=== PATIENT | male | born 1950 | race Native Hawaiian/Other Pacific Islander ===

== ENCOUNTER 2016-09-21 20:06 | Inpatient (IN) | payer OTHER ==
[2016-09-21 21:58] LABS: Basophils % (Auto) 0.8 % (0.0-1.8); Eosinophils % (Auto) 3.3 % (0.0-4.3); Hematocrit 27.2 % (35.5-45.6); Mean Corpuscular HGB Conc 33 % (32-34); Mean Corpuscular Hemoglobin 30 pg (28-32); Mean Corpuscular Volume 89 fl (84-94); Platelet Count 217 K/mm3 (140-440); Red Blood Count 3.05 M/mm3 (3.65-5.03); Red Cell Distribution Width 17.3 % (13.2-15.2)
[2016-09-21] MEDS ORDERED: LASIX IV ONE (22:10)
--- NOTE | 2016-09-21 22:15 | Emergency Department Report ---
HPI - General Chief Complaint: Dyspnea/Respdistress Time Seen by Provider: 09/21/16 21:59 - HPI HPI: Room 5 The patient is a 66-year-old male presenting with a chief complaint of shortness of breath. Family states the patient has forgotten to take his Lasix for the past 2 days (patient has a history of CHF). Yesterday the patient noticed swelling in his right lower extremity (left lower extremity was amputated 1.5 months ago) in addition to swelling in his hands and abdomen area patient began complaining of shortness of breath. Patient missed a cough but is nonproductive. Patient denies history of fever or chest pain. Patient denies sick contacts Location: Lungs, extremities Duration: 2 days Quality: Shortness of breath Severity: Moderate Modifying factors: Unknown Context: [see above] Mode of transportation: [not driving] ED Past Medical Hx - Past Medical History Previous Medical History?: Yes Hx Hypertension: Yes Hx Congestive Heart Failure: Yes Hx Diabetes: Yes Hx Renal Disease: Yes - Surgical History Past Surgical History?: Yes Additional Surgical History: BKA left leg - Family History Family history: no significant - Social History Smoking Status: Never Smoker Substance Use Type: None - Medications Home Medications: Home Medications Medication Instructions Recorded Confirmed Last Taken Type Insulin NPH/Regular [NovoLIN 70/30] 20 unit SUB-Q BIDDIAB #30 units 08/14/1612/03 1 Day Ago Rx 20 Furosemide [Lasix TAB] 40 mg PO BID #60 tablet 08/23/16 09/21/16 1 Day Ago Rx 40 Metoprolol [Lopressor TAB] 12.5 mg PO BID #60 tablet 08/23/16 09/21/16 1 Day Ago Rx 25 ED Review of Systems ROS: Stated complaint: KRUNAL Other details as noted in HPI Comment: All other systems reviewed and negative Constitutional: denies: chills, fever Eyes: denies: eye pain, eye discharge, vision change ENT: denies: ear pain, throat pain Respiratory: cough, shortness of breath Cardiovascular: denies: chest pain, palpitations Endocrine: no symptoms reported Gastrointestinal: denies: abdominal pain, nausea, diarrhea Genitourinary: denies: urgency, dysuria Musculoskeletal: denies: back pain, joint swelling, arthralgia Skin: other (edema). denies: rash, lesions Neurological: denies: headache, weakness, paresthesias Psychiatric: denies: anxiety, depression Hematological/Lymphatic: denies: easy bleeding, easy bruising Physical Exam - Physical Exam Vital Signs: Vital Signs 09/21/16 21:49 Temperature 98.0 F Pulse Rate 120 H Respiratory 20 Rate Blood Pressure 188/113 Blood Pressure 188/113 [Left] O2 Sat by Pulse 95 Oximetry Physical Exam: GENERAL: The patient is well-developed well-nourished male lying on stretcher appearing to be in mild distress. [] HEENT: Normocephalic. Atraumatic. Extraocular motions are intact. Patient has moist mucous membranes. NECK: Supple. Trachea midline CHEST/LUNGS: Crackles at bilateral bases HEART/CARDIOVASCULAR: Regular. There is tachycardia. There is no gallop rub or murmur. ABDOMEN: Abdomen is soft. There is abdominal wall edema SKIN: There is 2+ right lotion any pitting edema. There is pitting edema to the presacral region and abdomen NEURO: The patient is awake, alert, and oriented. The patient is cooperative. The patient has normal speech MUSCULOSKELETAL: Left BKA. There is no evidence of acute injury. ED Course Vital Signs 09/21/16 21:49 Temperature 98.0 F Pulse Rate 120 H Respiratory 20 Rate Blood Pressure 188/113 Blood Pressure 188/113 [Left] O2 Sat by Pulse 95 Oximetry ED Medical Decision Making - Lab Data Result diagrams: 09/21/16 21:46 09/21/16 21:46 Laboratory Tests 09/21/16 09/21/16 09/21/16 21:46 21:46 21:46 WBC 5.0 RBC 3.05 L Hgb 9.0 L Hct 27.2 L MCV 89 MCH 30 MCHC 33 RDW 17.3 H Plt Count 217 Lymph % (Auto) 23.9 [place] % (Auto) 7.7 H Eos % (Auto) 3.3 Baso % (Auto) 0.8 Lymph # 1.2 [place] # 0.4 Eos # 0.2 Baso # 0.0 Seg Neutrophils % 64.3 Seg Neutrophils # 3.2 Sodium 143 Potassium 4.5 Chloride 107.6 H Carbon Dioxide 20 L Anion Gap 20 BUN 39 H Creatinine 1.4 Estimated GFR 51 BUN/Creatinine Ratio 27.85 Glucose 92 Calcium 8.5 Total Creatine Kinase 101 CK-MB (CK-2) 4.6 H CK-MB (CK-2) Rel Index 4.5 H Troponin T 0.015 NT-Pro-B Natriuret Pep 9804 H - EKG Data -: EKG Interpreted by Me EKG shows normal: sinus rhythm Rate: tachycardia (103 bpm) - EKG Data When compared to previous EKG there are: no significant change Interpretation: unchanged when compared t (08/18/2016) - Radiology Data Radiology results: image reviewed (chest x-ray) interpreted by me: Chest x-ray-CHF with bilateral pleural effusions - Differential Diagnosis CHF exacerbation, pneumonia, ACS Critical care attestation.: If time is entered above; I have spent that time in minutes in the direct care of this critically ill patient, excluding procedure time. ED Disposition Clinical Impression: CHF exacerbation, Short of breath on exertion, Leg edema, right, Pulmonary edema Disposition: OP ADMITTED IP TO THIS HOSP Is pt being admited?: Yes Does the pt Need Aspirin: Yes Condition: Serious Instructions: Pulmonary Edema (ED) Referrals: PRIMARY CARE, [Primary Care Provider] - 3-5 Days Time of Disposition: 23:03 (hospitalist paged)
[2016-09-21 22:19] LABS: BUN/Creatinine Ratio 27.85; Calcium 8.5 mg/dL (8.4-10.2); Chloride 107.6 mmol/L (98-107); Potassium 4.5 mmol/L (3.6-5.0)
[2016-09-21 22:21] LABS: Creatine Kinase MB 4.6 ng/mL (0.0-4.0)
[2016-09-21] MEDS ORDERED: ASPIRIN PO ONE (22:34)
--- NOTE | 2016-09-21 23:24 | History and Physical Report ---
History of Present Illness Chief complaint: Shortness of breath History of present illness: 66 YO Male with HTN, CHF(Systolic Failure), DM, CKD, Medication noncompliance presents to ED for evaluation. Pt states that he has beex experiencing difficulty berathing for the past week, with worsening symptoms over the past 2 days. Pt acknowledges orthopnea, PND, diet and medication noncompliance, as wel as nonproductive cough. Pt states the he has forgotten to take his Lasix for the past several days. Patient denies history of fever, chills, chest pain, palpitations, NVD, recent ill contacts. Patient denies sick contacts. Past History Past Medical History: diabetes, heart failure, hypertension, renal failure Past Surgical History: Other (L BKA) Social history: single, lives with family. denies: alcohol abuse, prescription drug abuse Family history: diabetes, hypertension Medications and Allergies Allergies Allergy/AdvReac Type Severity Reaction Status Date / Time No Known Allergies Allergy Verified 08/03/16 02:09 Home Medications Medication Instructions Recorded Confirmed Last Taken Type Insulin NPH/Regular [NovoLIN 70/30] 20 unit SUB-Q BIDDIAB #30 units 08/14/1612/03 1 Day Ago Rx 20 Furosemide [Lasix TAB] 40 mg PO BID #60 tablet 08/23/16 09/21/16 1 Day Ago Rx 40 Metoprolol [Lopressor TAB] 12.5 mg PO BID #60 tablet 08/23/16 09/21/16 1 Day Ago Rx 25 Review of Systems All systems: negative Cardiovascular: orthopnea, paroxysmal nocturnal dyspnea Respiratory: shortness of breath, dyspnea on exertion Exam - Constitutional Vitals: Temp Pulse Resp BP Pulse Ox 98.0 F 114 H 32 H 166/96 99 09/21/16 21:49 09/21/16 22:12 09/21/16 22:12 09/21/16 22:12 09/21/16 22:12 Results - Labs CBC & Chem 7: 09/21/16 21:46 09/21/16 21:46 Labs: Abnormal lab results 09/21/16 09/21/16 09/21/16 Range/Units 21:46 21:46 21:46 RBC 3.05 L (3.65-5.03) M/mm3 Hgb 9.0 L (11.8-15.2) gm/dl Hct 27.2 L (35.5-45.6) % RDW 17.3 H (13.2-15.2) % [place] % (Auto) 7.7 H (0.0-7.3) % Chloride 107.6 H (98-107) mmol/L Carbon Dioxide 20 L (22-30) mmol/L BUN 39 H (9-20) mg/dL CK-MB (CK-2) 4.6 H (0.0-4.0) ng/mL CK-MB (CK-2) Rel Index 4.5 H (0-4) NT-Pro-B Natriuret Pep 9804 H (0-900) pg/mL Assessment and Plan - Patient Problems (1) CHF exacerbation Current Visit: Yes Status: Acute Plan to address problem: Diuresis, fluid restriction, monitor uop q shift, resume home medication, (2) Acute hypoxemic respiratory failure Current Visit: No Status: Acute Plan to address problem: supplemental oxygen, nebs, supportive care, NIPPV as clinically indicated, (3) Malignant hypertension Current Visit: Yes Status: Acute Plan to address problem: monitor bp q shift, resume home medication, hydralazine prn (4) Diabetes Current Visit: No Status: Acute Plan to address problem: ADA diet, insulin, accu check (5) DVT prophylaxis Current Visit: No Status: Acute
[2016-09-21] MEDS ORDERED: DUONEB 0.5 MG-3 MG/3 ML SOLN IH PRN (23:27)
--- NOTE | 2016-09-21 23:28 | Admit Criteria Form ---
Admission Criteria Documentation: HEART FAILURE: COMMON COMPLICATIONS Clinical Indications for Inpatient Care (Place 'X' for any and all applicable criteria): Ongoing inpatient care may be indicated for heart failure with ANY ONE of the following (1)(2)(3)(4)(5): [ ]I. Ongoing need for care for primary condition requiring frequent therapy adjustments because of changes in cardiac function (eg, drug dosage changes for drugs that are renally metabolized) [ ]II. New-onset heart failure [ ]III. Heart failure with decreased urine output not responsive to attempts to optimize volume status [ ]IV. Acute cardiac ischemia causing or associated with failure [X ]V. Complications of heart failure, including ANY ONE of the following: [ ]a) Pericardial effusion [ ]b) Symptomatic pleural effusion [ ]c) O2 saturation <90% or PO2 < 60 mm Hg (8.0 kPa) on room air or require baseline supplemental O2 [ ]d) Tachypnea [ X]e) Dyspnea [ ]f) Syncope [ ]g) Change in mental status [ ]h) Acute renal insufficiency that is severe (reduction of more than 50% in estimated glomerular filtration rate from baseline) or progressive reduction of more than 25% in estimated glomerular filtration rate from baseline, with creatinine continuing to rise) [ ]i) Hemodynamic instability [ ]j) Anasarca [ ]k) Clinically significant metabolic abnormalities due to heart failure (eg, new-onset metabolic acidosis) Extended stay beyond goal length of stay for primary condition may be needed until ALL of the following are present(1)(3): [ ]a) Stable and effective diuretic regimen established (or patient on stable dialysis regimen if in chronic renal failure) [ ]b) Breathing comfortably at rest [ ]c) Saturation of arterial oxygen greater than 90% or at acceptable baseline [ ]d) Pulmonary edema absent or improved [ ]e) Hemodynamic stability [ ]f) Volume status acceptable on oral medication [ ]g) Peripheral or sacral edema absent or improved [ ]h) Renal function stable and manageable at a lower level of care [ ]i) Complications (eg, pleural effusion) resolved or manageable at a lower level of care [ ]j) Patient or caregiver has received written discharge instructions or educational material addressing activity level, diet, discharge medications, follow-up appointment, weight monitoring, and what to do if symptoms worsen The original [facility] content created by [employer] has been revised. The portions of the content which have been revised are identified through the use of italic text or in bold, and [facility] has neither reviewed nor approved the modified material.All other unmodified content is copyright [facility]. Please see references footnoted in the original [facility] edition 2016 Admission Criteria Met: Yes
[2016-09-22] MEDS ORDERED: PROVENTIL IH PRN (00:05)
[2016-09-22] MEDS: LASIX IV SCH ×2 (06:06→18:56)
[2016-09-22] MEDS: LOPRESSOR PO SCH ×3 (08:30→21:02)
--- NOTE | 2016-09-22 09:13 | XRay Report ---
Portable chest: Bilateral perihilar infiltrates are noted with bibasilar areas of focal consolidation and/or pleural effusions. The heart is difficult to assess but may be slightly enlarged. There is poor expiratory effort. Comparison to prior study August 19 demonstrates a change in the distribution of pulmonary infiltrates predominantly from the upper to the lower lobes on the current study. Impression: Changing pattern of nonspecific pulmonary infiltrates and effusions.
[2016-09-22] MEDS ORDERED: PNEUMOVAX 23 IM ONE (12:00)
[2016-09-22] MEDS ORDERED: FLUARIX QUAD 2016-2017(36 MOS+) IM ONE (12:00)
--- NOTE | 2016-09-22 12:00 | Progress Note ---
Assessment and Plan Assessment and plan: Acute on chronic systolic CHF. Started on Lasix 40 mg iv bid, Beta blockers Diabetes mellitus type 2. Fingerstick glucose qachs Hypertension. Continue Lopressor bid DVT prophylaxis with Heparin Full code status. History Interval history: shortness of breath, no chest pain Hospitalist Physical - Physical exam Narrative exam: Gen: Not in acute distress HEENT: Normocephalic, atraumatic Neck:supple, no lymphadenopathy Lungs: Bilateral crackles, no wheezes Heart:S1 and S2 reg, no murmurs, rubs or gallop Abd: soft, NT, non-distended, normal BS Ext:no edema, no clubbing or cyanosis Neuro:Awake,alert,oriented x 3, no focal neuro signs - Constitutional Vitals: Temp Pulse Resp BP Pulse Ox 98.5 F 80 18 127/78 100 09/22/16 11:00 09/22/16 11:00 09/22/16 11:00 09/22/16 11:00 09/22/16 11:00 Results - Labs CBC & Chem 7: 09/21/16 21:46 09/22/16 16:54 Labs: Laboratory Last Values WBC 5.0 K/mm3 (4.5-11.0) 09/21/16 21:46 RBC 3.05 M/mm3 (3.65-5.03) L 09/21/16 21:46 Hgb 9.0 gm/dl (11.8-15.2) L 09/21/16 21:46 Hct 27.2 % (35.5-45.6) L 09/21/16 21:46 MCV 89 fl (84-94) 09/21/16 21:46 MCH 30 pg (28-32) 09/21/16 21:46 MCHC 33 % (32-34) 09/21/16 21:46 RDW 17.3 % (13.2-15.2) H 09/21/16 21:46 Plt Count 217 K/mm3 (140-440) 09/21/16 21:46 Lymph % (Auto) 23.9 % (13.4-35.0) 09/21/16 21:46 [place] % (Auto) 7.7 % (0.0-7.3) H 09/21/16 21:46 Eos % (Auto) 3.3 % (0.0-4.3) 09/21/16 21:46 Baso % (Auto) 0.8 % (0.0-1.8) 09/21/16 21:46 Lymph # 1.2 K/mm3 (1.2-5.4) 09/21/16 21:46 [place] # 0.4 K/mm3 (0.0-0.8) 09/21/16 21:46 Eos # 0.2 K/mm3 (0.0-0.4) 09/21/16 21:46 Baso # 0.0 K/mm3 (0.0-0.1) 09/21/16 21:46 Seg Neutrophils % 64.3 % (40.0-70.0) 09/21/16 21:46 Seg Neutrophils # 3.2 K/mm3 (1.8-7.7) 09/21/16 21:46 Sodium 143 mmol/L (137-145) 09/21/16 21:46 Potassium 4.5 mmol/L (3.6-5.0) 09/21/16 21:46 Chloride 107.6 mmol/L (98-107) H 09/21/16 21:46 Carbon Dioxide 20 mmol/L (22-30) L 09/21/16 21:46 Anion Gap 20 mmol/L 09/21/16 21:46 BUN 39 mg/dL (9-20) H 09/21/16 21:46 Creatinine 1.4 mg/dL (0.8-1.5) 09/21/16 21:46 Estimated GFR 51 ml/min 09/21/16 21:46 BUN/Creatinine Ratio 27.85 % 09/21/16 21:46 Glucose 92 mg/dL (75-100) 09/21/16 21:46 Calcium 8.5 mg/dL (8.4-10.2) 09/21/16 21:46 Total Creatine Kinase 101 units/L (55-170) 09/21/16 21:46 CK-MB (CK-2) 4.6 ng/mL (0.0-4.0) H 09/21/16 21:46 CK-MB (CK-2) Rel Index 4.5 (0-4) H 09/21/16 21:46 Troponin T 0.015 ng/mL (0.00-0.029) 09/21/16 21:46 NT-Pro-B Natriuret Pep 9804 pg/mL (0-900) H 09/21/16 21:46
[2016-09-22 18:00] LABS: BUN/Creatinine Ratio 27.85; Calcium 8.2 mg/dL (8.4-10.2); Chloride 105.5 mmol/L (98-107); Potassium 4.7 mmol/L (3.6-5.0)
[2016-09-22] MEDS ORDERED: D50W (25GM) IV PRN (22:22)
[2016-09-23] MEDS: LASIX IV SCH ×2 (06:24→18:53)
[2016-09-23] MEDS: HEPARIN SUB-Q SCH ×3 (06:24→21:31)
[2016-09-23] MEDS: LOPRESSOR PO SCH ×2 (10:14→21:32)
--- NOTE | 2016-09-23 11:38 | Consultation ---
History of Present Illness Consult date: 09/23/16 Consult reason: shortness of breath History of present illness: Patient is a 66-year-old man with multiple medical problems. He is status post left below knee amputation, has chronic anemia, chronic kidney disease and a history of heart failure with preserved ejection fraction. Recent admission, an echocardiogram showed left ventricular ejection fraction 45-50%, with no severe valvular lesions. He is a poor historian and unable to articulate details of any prior cardiac ischemic workup. He presents to the hospital at this time with shortness of breath, reported some swelling in his hands and his intact right leg. There was no chest pain. There was no palpitations or syncope. Chest x-ray was reviewed by me, shows a dense right lower lobe consultation, small to moderate sized lateral pleural effusions, and only very mild interstitial edema. Labs on presentation include a persistent anemia with a hematocrit of 27. The white count was normal at 5. The creatinine on this presentation was improved at 1.4. On the previous admission last month, creatinine was as high as 4.8. ECG was mild sinus tachycardia with nonspecific ST and T changes. ECG was essentially otherwise normal. Past History Past Medical History: diabetes, heart failure, hypertension, renal failure Past Surgical History: Other (L BKA) Social history: single, lives with family. denies: alcohol abuse, prescription drug abuse Family history: diabetes, hypertension Medications and Allergies Allergies Allergy/AdvReac Type Severity Reaction Status Date / Time No Known Allergies Allergy Verified 08/03/16 02:09 Home Medications Medication Instructions Recorded Confirmed Last Taken Type Insulin NPH/Regular [NovoLIN 70/30] 20 unit SUB-Q BIDDIAB #30 units 08/14/1612/03 1 Day Ago Rx 20 Furosemide [Lasix TAB] 40 mg PO BID #60 tablet 08/23/16 09/21/16 1 Day Ago Rx 40 Metoprolol [Lopressor TAB] 12.5 mg PO BID #60 tablet 08/23/16 09/21/16 1 Day Ago Rx 25 Active Meds: Active Medications Acetaminophen (Tylenol) 650 mg PO Q4H PRN PRN Reason: Pain MILD(1-3)/Fever >100.5/BEARD Albuterol (Proventil) 2.5 mg IH Q6HRT PRN PRN Reason: Shortness Of Breath Dextrose (D50w (25gm)) 25 gm IV PRN PRN PRN Reason: Hypoglycemia Furosemide (Lasix) 40 mg IV BID@0600,1800 [facility] Last Admin: 09/23/16 06:24 Dose: 40 mg Heparin Sodium (Porcine) (Heparin) 5,000 unit SUB-Q Q8HR [facility] Last Admin: 09/23/16 06:24 Dose: 5,000 unit Insulin Human Isoph/Insulin Regular (Novolin 70/30) 20 unit SUB-Q BIDDIAB [facility] Last Admin: 09/22/16 18:56 Dose: 20 unit Metoprolol Tartrate (Lopressor) 12.5 mg PO BID [facility] Last Admin: 09/23/16 10:14 Dose: 12.5 mg Review of Systems Cardiovascular: edema, shortness of breath, no chest pain, no orthopnea, no palpitations, no rapid/irregular heart beat, no syncope, no lightheadedness Physical Examination Vital Signs Temp Pulse Resp BP Pulse Ox 98.0 F 120 H 20 188/113 95 09/21/16 21:49 09/21/16 21:49 09/21/16 21:49 09/21/16 21:49 09/21/16 21:49 General appearance: no acute distress HEENT: Positive: PERRL Neck: Positive: neck supple Cardiac: Positive: Reg Rate and Rhythm Lungs: Positive: Decreased Breath Sounds Neuro: Positive: Grossly Intact Abdomen: Positive: Soft Male genitourinary: Positive: deferred Skin: Positive: Clear Extremities: Present: +1 Edema Results 09/21/16 21:46 09/22/16 16:54 Comprehensive Metabolic Panel 09/22/16 Range/Units 16:54 Sodium 141 (137-145) mmol/L Potassium 4.7 (3.6-5.0) mmol/L Chloride 105.5 (98-107) mmol/L Carbon Dioxide 21 L (22-30) mmol/L BUN 39 H (9-20) mg/dL Creatinine 1.4 (0.8-1.5) mg/dL Glucose 72 L (75-100) mg/dL Calcium 8.2 L (8.4-10.2) mg/dL EKG interpretations - Telemetry EKG Rhythm: Sinus Tachycardia Assessment and Plan - Patient Problems (1) Heart failure with preserved ejection fraction Current Visit: Yes Status: Acute Plan to address problem: We'll continue medical therapy for fluid overload, ultimately, either predischarge or outpatient, a Persantine thallium stress test for ischemia assessment will be indicated. (2) Pleural effusion Current Visit: Yes Status: Acute Plan to address problem: Recommend pulmonary evaluation of the bilateral pleural effusion and right lower lobe consolidation.
--- NOTE | 2016-09-23 18:47 | Progress Note ---
Assessment and Plan Assessment and plan: Acute on chronic systolic CHF. EF 45-50% on Echo done on 08/17/16. Started on Lasix 40 mg iv bid, Lopressor. Still has shortness of breath. Cardiology following. CXR shows pulmonary edema. Diabetes mellitus type 2. Fingerstick glucose qachs Hypertension. Continue Lopressor bid DVT prophylaxis with Heparin Full code status. History Interval history: still has shortness of breath, no chest pain, no fever Hospitalist Physical - Physical exam Narrative exam: Gen: Not in acute distress HEENT: Normocephalic, atraumatic Neck:supple, no lymphadenopathy Lungs: Bilateral crackles, no wheezes Heart:S1 and S2 reg, no murmurs, rubs or gallop Abd: soft, NT, non-distended, normal BS Ext:no edema, no clubbing or cyanosis Neuro:Awake,alert,oriented x 3, no focal neuro signs - Constitutional Vitals: Temp Pulse Resp BP Pulse Ox 98.6 F 84 18 147/82 92 09/23/16 17:18 09/23/16 18:04 09/23/16 17:18 09/23/16 17:18 09/23/16 17:18 Results - Labs CBC & Chem 7: 09/21/16 21:46 09/22/16 16:54 Labs: Laboratory Last Values WBC 5.0 K/mm3 (4.5-11.0) 09/21/16 21:46 RBC 3.05 M/mm3 (3.65-5.03) L 09/21/16 21:46 Hgb 9.0 gm/dl (11.8-15.2) L 09/21/16 21:46 Hct 27.2 % (35.5-45.6) L 09/21/16 21:46 MCV 89 fl (84-94) 09/21/16 21:46 MCH 30 pg (28-32) 09/21/16 21:46 MCHC 33 % (32-34) 09/21/16 21:46 RDW 17.3 % (13.2-15.2) H 09/21/16 21:46 Plt Count 217 K/mm3 (140-440) 09/21/16 21:46 Lymph % (Auto) 23.9 % (13.4-35.0) 09/21/16 21:46 [place] % (Auto) 7.7 % (0.0-7.3) H 09/21/16 21:46 Eos % (Auto) 3.3 % (0.0-4.3) 09/21/16 21:46 Baso % (Auto) 0.8 % (0.0-1.8) 09/21/16 21:46 Lymph # 1.2 K/mm3 (1.2-5.4) 09/21/16 21:46 [place] # 0.4 K/mm3 (0.0-0.8) 09/21/16 21:46 Eos # 0.2 K/mm3 (0.0-0.4) 09/21/16 21:46 Baso # 0.0 K/mm3 (0.0-0.1) 09/21/16 21:46 Seg Neutrophils % 64.3 % (40.0-70.0) 09/21/16 21:46 Seg Neutrophils # 3.2 K/mm3 (1.8-7.7) 09/21/16 21:46 Sodium 141 mmol/L (137-145) 09/22/16 16:54 Potassium 4.7 mmol/L (3.6-5.0) 09/22/16 16:54 Chloride 105.5 mmol/L (98-107) 09/22/16 16:54 Carbon Dioxide 21 mmol/L (22-30) L 09/22/16 16:54 Anion Gap 19 mmol/L 09/22/16 16:54 BUN 39 mg/dL (9-20) H 09/22/16 16:54 Creatinine 1.4 mg/dL (0.8-1.5) 09/22/16 16:54 Estimated GFR 51 ml/min 09/22/16 16:54 BUN/Creatinine Ratio 27.85 % 09/22/16 16:54 Glucose 72 mg/dL (75-100) L 09/22/16 16:54 POC Glucose 221 (70-105) H 09/23/16 15:54 Calcium 8.2 mg/dL (8.4-10.2) L 09/22/16 16:54 Total Creatine Kinase 101 units/L (55-170) 09/21/16 21:46 CK-MB (CK-2) 4.6 ng/mL (0.0-4.0) H 09/21/16 21:46 CK-MB (CK-2) Rel Index 4.5 (0-4) H 09/21/16 21:46 Troponin T 0.029 ng/mL (0.00-0.029) 09/22/16 16:54 NT-Pro-B Natriuret Pep 9804 pg/mL (0-900) H 09/21/16 21:46
[2016-09-23] MEDS: TYLENOL PO PRN (21:33)
[2016-09-24] MEDS: HEPARIN SUB-Q SCH ×3 (06:02→21:29)
[2016-09-24] MEDS: LASIX IV SCH ×2 (06:02→17:17)
--- NOTE | 2016-09-24 08:58 | XRay Report ---
CHEST 2 VIEWS: INDICATION: CHF. COMPARISON: 09/21/2016 FINDINGS: Frontal and lateral chest radiographs again demonstrate limited inspiration with exaggerated cardiomediastinal silhouette and increased pulmonary infiltrates/congestive densities, including bibasilar opacities/effusions, obscuring the hemidiaphragms. Mild fluid or thickening along the right minor fissure as well. Slight aortic knob calcifications. Stable demineralized bones. CONCLUSION: CHF again noted, as described. Thank you for the opportunity to participate in this patient's care.
[2016-09-24] MEDS: LOPRESSOR PO SCH ×2 (09:39→21:26)
--- NOTE | 2016-09-24 10:59 | Progress Note ---
Assessment and Plan Acute on chronic diastolic heart failure LVEF 45-50% Patient is warm and wet on exam with evidence of bilateral rales Systemic Hypertension Type II DM s/p left leg amputation Anemia Chronic kidney disease (creatinine 1.4 this admission) Non-compliance Recommendations: Encourage compliance with meds and fluid restriction (patient is non-compliant with meds and misses his outpatient appt on a routine basis) Continue IV lasix therapy Subjective Date of service: 09/24/16 Principal diagnosis: CHF Interval history: Patient is lying in bed, no distress Objective Vital Signs Temp Pulse Pulse Pulse Resp BP BP 09/24/16 10:51 89 09/24/16 09:02 09/24/16 08:00 98 F 90 20 141/76 09/24/16 05:49 98.6 F 83 20 126/75 09/24/16 02:00 103 H 09/24/16 00:28 98.3 F 96 H 20 130/70 09/23/16 21:33 20 09/23/16 21:32 103 H 159/73 09/23/16 20:53 09/23/16 19:46 98.4 F 103 H 20 151/79 09/23/16 18:04 84 09/23/16 17:18 98.6 F 93 H 18 147/82 09/23/16 13:25 97.6 F 83 18 149/84 Pulse Ox 09/24/16 10:51 09/24/16 09:02 95 09/24/16 08:00 100 09/24/16 05:49 100 09/24/16 02:00 09/24/16 00:28 97 09/23/16 21:33 09/23/16 21:32 09/23/16 20:53 96 09/23/16 19:46 99 09/23/16 18:04 09/23/16 17:18 92 09/23/16 13:25 98 - Physical Examination HEENT: Positive: PERRL Neck: Positive: neck supple Cardiac: Positive: Reg Rate and Rhythm Lungs: Positive: Rales Neuro: Positive: Grossly Intact Abdomen: Positive: Soft Skin: Positive: Clear Extremities: Present: +1 Edema
--- NOTE | 2016-09-24 12:12 | Consultation ---
History of Present Illness Consult date: 09/24/16 Requesting physician: MANUEL ESQUEDA Reason for consult: pleural effusion (Shortness of Breath), other History of present illness: PULMONARY/CCM CONSULT NOTE (Full dictation # [id number]) Please see dictated notes for full details Past History Past Medical History: diabetes, heart failure, hypertension, renal failure Past Surgical History: Other (L BKA) Social history: single, lives with family. denies: alcohol abuse, prescription drug abuse Family history: diabetes, hypertension Medications and Allergies Allergies Allergy/AdvReac Type Severity Reaction Status Date / Time No Known Allergies Allergy Verified 08/03/16 02:09 Home Medications Medication Instructions Recorded Confirmed Last Taken Type Insulin NPH/Regular [NovoLIN 70/30] 20 unit SUB-Q BIDDIAB #30 units 08/14/1612/03 1 Day Ago Rx 20 Furosemide [Lasix TAB] 40 mg PO BID #60 tablet 08/23/16 09/21/16 1 Day Ago Rx 40 Metoprolol [Lopressor TAB] 12.5 mg PO BID #60 tablet 08/23/16 09/21/16 1 Day Ago Rx 25 Active Meds: Active Medications Acetaminophen (Tylenol) 650 mg PO Q4H PRN PRN Reason: Pain MILD(1-3)/Fever >100.5/BEARD Last Admin: 09/23/16 21:33 Dose: 650 mg Albuterol (Proventil) 2.5 mg IH Q6HRT PRN PRN Reason: Shortness Of Breath Dextrose (D50w (25gm)) 25 gm IV PRN PRN PRN Reason: Hypoglycemia Furosemide (Lasix) 40 mg IV BID@0600,1800 [facility] Last Admin: 09/24/16 06:02 Dose: 40 mg Heparin Sodium (Porcine) (Heparin) 5,000 unit SUB-Q Q8HR [facility] Last Admin: 09/24/16 06:02 Dose: 5,000 unit Insulin Human Isoph/Insulin Regular (Novolin 70/30) 20 unit SUB-Q BIDDIAB [facility] Last Admin: 09/24/16 09:40 Dose: 20 unit Metoprolol Tartrate (Lopressor) 12.5 mg PO BID [facility] Last Admin: 09/24/16 09:39 Dose: 12.5 mg Physical Examination Vital signs: Vital Signs Temp Pulse Resp BP Pulse Ox 98.0 F 120 H 20 188/113 95 09/21/16 21:49 09/21/16 21:49 09/21/16 21:49 09/21/16 21:49 09/21/16 21:49 Results - Laboratory Findings CBC and BMP: 09/21/16 21:46 09/22/16 16:54 Abnormal lab findings: Abnormal Labs 09/22/16 09/22/16 09/23/16 16:54 22:17 07:36 Carbon Dioxide 21 L BUN 39 H Glucose 72 L POC Glucose 60 L 61 L Calcium 8.2 L 09/23/16 09/23/16 09/23/16 13:16 15:54 21:33 Carbon Dioxide BUN Glucose POC Glucose 154 H 221 H 244 H Calcium 09/24/16 07:54 Carbon Dioxide BUN Glucose POC Glucose 187 H Calcium
--- NOTE | 2016-09-24 14:44 | Progress Note ---
Assessment and Plan Assessment and plan: Acute on chronic systolic CHF. EF 45-50% on Echo done on 08/17/16. Continue Lasix 40 mg iv bid, Lopressor. Less shortness of breath. Cardiology following. CXR shows pulmonary edema. Diabetes mellitus type 2. Fingerstick glucose qachs Hypertension. Continue Lopressor bid DVT prophylaxis with Heparin Full code status. History Interval history: Less has shortness of breath, no chest pain, no fever Hospitalist Physical - Physical exam Narrative exam: Gen: Not in acute distress HEENT: Normocephalic, atraumatic Neck:supple, no lymphadenopathy Lungs: Bilateral crackles, no wheezes Heart:S1 and S2 reg, no murmurs, rubs or gallop Abd: soft, NT, non-distended, normal BS Ext: bilateral lower ext edema, no clubbing or cyanosis Neuro:Awake,alert,oriented x 3, no focal neuro signs - Constitutional Vitals: Temp Pulse Resp BP Pulse Ox 97.6 F 96 H 20 128/72 96 09/24/16 12:00 09/24/16 12:00 09/24/16 12:00 09/24/16 12:00 09/24/16 12:00 General appearance: Present: no acute distress Results - Labs CBC & Chem 7: 09/21/16 21:46 09/22/16 16:54 Labs: Laboratory Last Values WBC 5.0 K/mm3 (4.5-11.0) 09/21/16 21:46 RBC 3.05 M/mm3 (3.65-5.03) L 09/21/16 21:46 Hgb 9.0 gm/dl (11.8-15.2) L 09/21/16 21:46 Hct 27.2 % (35.5-45.6) L 09/21/16 21:46 MCV 89 fl (84-94) 09/21/16 21:46 MCH 30 pg (28-32) 09/21/16 21:46 MCHC 33 % (32-34) 09/21/16 21:46 RDW 17.3 % (13.2-15.2) H 09/21/16 21:46 Plt Count 217 K/mm3 (140-440) 09/21/16 21:46 Lymph % (Auto) 23.9 % (13.4-35.0) 09/21/16 21:46 [place] % (Auto) 7.7 % (0.0-7.3) H 09/21/16 21:46 Eos % (Auto) 3.3 % (0.0-4.3) 09/21/16 21:46 Baso % (Auto) 0.8 % (0.0-1.8) 09/21/16 21:46 Lymph # 1.2 K/mm3 (1.2-5.4) 09/21/16 21:46 [place] # 0.4 K/mm3 (0.0-0.8) 09/21/16 21:46 Eos # 0.2 K/mm3 (0.0-0.4) 09/21/16 21:46 Baso # 0.0 K/mm3 (0.0-0.1) 09/21/16 21:46 Seg Neutrophils % 64.3 % (40.0-70.0) 09/21/16 21:46 Seg Neutrophils # 3.2 K/mm3 (1.8-7.7) 09/21/16 21:46 Sodium 141 mmol/L (137-145) 09/22/16 16:54 Potassium 4.7 mmol/L (3.6-5.0) 09/22/16 16:54 Chloride 105.5 mmol/L (98-107) 09/22/16 16:54 Carbon Dioxide 21 mmol/L (22-30) L 09/22/16 16:54 Anion Gap 19 mmol/L 09/22/16 16:54 BUN 39 mg/dL (9-20) H 09/22/16 16:54 Creatinine 1.4 mg/dL (0.8-1.5) 09/22/16 16:54 Estimated GFR 51 ml/min 09/22/16 16:54 BUN/Creatinine Ratio 27.85 % 09/22/16 16:54 Glucose 72 mg/dL (75-100) L 09/22/16 16:54 POC Glucose 99 (70-105) 09/24/16 12:03 Calcium 8.2 mg/dL (8.4-10.2) L 09/22/16 16:54 Total Creatine Kinase 101 units/L (55-170) 09/21/16 21:46 CK-MB (CK-2) 4.6 ng/mL (0.0-4.0) H 09/21/16 21:46 CK-MB (CK-2) Rel Index 4.5 (0-4) H 09/21/16 21:46 Troponin T 0.029 ng/mL (0.00-0.029) 09/22/16 16:54 NT-Pro-B Natriuret Pep 9804 pg/mL (0-900) H 09/21/16 21:46
[2016-09-24] MEDS: TYLENOL PO PRN (21:27)
--- NOTE | 2016-09-25 01:58 | Consultation ---
CONSULTING PHYSICIAN: Aram Moise MD REASON FOR CONSULTATION: Shortness of breath, pleural effusion. CHIEF COMPLAINT AND HISTORY OF PRESENT ILLNESS: The patient is a 66-year-old male with past medical history significant amongst other things for a diagnosis of congestive heart failure as well as chronic kidney disease, came into the Emergency Room, brought in by his family for shortness of breath. They report he had forgotten to take his Lasix for the preceding 2 days and became significantly short of breath. The day of presentation, he had noticed swelling in the right lower extremity and also abdominal swelling and increased abdominal girth. He had a cough that was productive of clear phlegm. Denied any chest pain, fevers, or chills. He was evaluated and found amongst other things to be volume overloaded and we were asked to assist with the management of reported pleural effusion. When I stopped by to see him, he was sitting up in the side of the bed, told me he was feeling better. Denied any nausea, vomiting, or overt aspiration prior to coming into the hospital. He denied any gross or streaky hemoptysis. He denied fevers or chills. Now with regards to the patient's tobacco use/abuse history, he denied any smoking history to me. That really is as much of the history of presentation as I have. PAST MEDICAL HISTORY: Again, significant for hypertension, congestive heart failure, diabetes, chronic kidney disease. 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 MEDICATIONS: He was on at the time I stopped by to see him, according to the medication administration record included the following: Tylenol 650 mg p.o. q. 4 hours p.r.n., albuterol 2.5 mg nebulized q. 6 hours p.r.n. shortness of breath, Lasix 40 mg IV b.i.d., heparin 5000 units subcutaneous q. 8 hours, 70/30 insulin 20 units subcutaneous b.i.d., and Lopressor 12.5 mg p.o. b.i.d. ALLERGIES: No known drug allergies. DIET: Well-built gentleman, acute weight loss or gain history is unknown. FAMILY AND SOCIAL HISTORY: Apparently, lives in the community with the family. Denies alcohol, tobacco, or illicit drug use or abuse. REVIEW OF SYSTEMS: No loss of consciousness. No new onset seizures. No new onset focal weakness. No gross hematochezia or melena. No gross hematuria. Denies dysuria. No hematemesis. No hemoptysis. No palpitations. Complete review of systems obtained. Pertinent positives and/or negatives as in body of history above, otherwise they are noncontributory. PHYSICAL EXAMINATION: VITAL SIGNS: At initial presentation in the Emergency Room revealed the vital signs shows that he was afebrile, temperature was 98.0, pulse was 120, respiratory rate 20, blood pressure 188/113, oxygen sats were 95%. Inspired oxygen concentration was not recorded. HEENT: Pupils are equal, round, about 3-4 mm, reactive to light. Extraocular muscle movements are intact. Oropharynx is a Mallampati #2 oropharynx, no significant posterior pharyngeal erythema. Grossly, no palpable lymph nodes in the supraclavicular or submandibular lymph node chains. LUNGS: Auscultation of both lung cazares significant for bibasilar inspiratory rales as well as diminished bibasilar air entry. No wheezing. HEART: Heart sounds 1 and 2 are heard. There were regular rate and rhythm at the time of my evaluation. ABDOMEN: Soft, bowel sounds are positive, did not appear tender. EXTREMITIES: With 2+ tight pitting edema of the right lower extremity and left below the knee amputation. NEUROLOGIC: The exam was grossly nonfocal. LABORATORY DATA: From my review are as follows: White cell count 5000 with a hemoglobin of 9.0, hematocrit of 27.2, and platelets of 217. Serum sodium 143, potassium 4.5, chloride 108, bicarbonate 20, BUN 39, creatinine 1.4, and glucose was 92. Liver function test not done. BNP elevated at 9804, and cardiac enzymes essentially unremarkable really. RADIOGRAPHIC STUDIES: Unfortunately, I am unable to pull up the images myself. The initial chest x-ray mentions poor expiratory effort, change in pattern of nonspecific pulmonary infiltrates and effusions. Repeat chest x-ray was done today and it says congestive heart failure again noted as described. Unfortunately, it did not mention if it is improving or about the same. ASSESSMENT AND PLAN: We have an elderly gentleman in with an acute CHF exacerbation and what appears to be chronic effusions and volume overload pattern. Respiratory ruiz, supplemental oxygen as necessary to keep sats greater than about 92-94% will be continued. By the time I saw him, he was on only about 1 liter nasal cannula. I do believe with diuresis, he will be free of the hypoxemia. I will try and pull up the films and if significant, thoracentesis will be done; however, just on the clinical exam, I do think we can treat this conservatively with the diuretics. Electrolytes should be followed and corrected as necessary. Aspiration precautions should be maintained. Medication compliance has been stressed. He will be placed on GI prophylaxis. He is on DVT prophylaxis. Flu and pneumonia vaccination will be per protocol. Thank you very much for the consult Dr. Moise. We will follow along. We will make further recommendations as picture progresses/becomes clearer. JOB# [id number] SAPNA/JACINTA
[2016-09-25] MEDS: LASIX IV SCH ×2 (05:43→17:43)
[2016-09-25] MEDS: HEPARIN SUB-Q SCH ×3 (05:43→21:45)
--- NOTE | 2016-09-25 09:29 | Progress Note ---
Assessment and Plan Acute on chronic diastolic heart failure - improved LVEF 45-50% Systemic Hypertension Type II DM s/p left leg amputation Anemia Chronic kidney disease (creatinine 1.4 this admission) Non-compliance Recommendations: Encourage compliance with meds and fluid restriction (patient is non-compliant with meds and misses his outpatient appt on a routine basis) Change IV lasix to po 40 mg po bid Add hydralazine for afterload reduction May go home cardiac ruiz (will sign off) Son given contact information to schedule appt in 1 week Subjective Date of service: 09/25/16 Principal diagnosis: CHF Interval history: Son is at the bedside, states that father is feeling much better and the swelling has significantly improved. Patient denies chest pain or shortness of breath. Objective Vital Signs Temp Pulse Pulse Resp BP BP Pulse Ox 09/25/16 06:19 98.6 F 92 H 22 156/90 99 09/25/16 00:29 98.7 F 78 20 129/73 100 09/24/16 21:27 22 09/24/16 21:26 89 132/78 09/24/16 20:44 98 09/24/16 20:41 98.4 F 89 20 132/78 99 09/24/16 18:18 89 09/24/16 16:00 97.7 F 95 H 20 135/82 97 09/24/16 12:00 97.6 F 96 H 20 128/72 96 09/24/16 11:23 14 09/24/16 10:51 89 - Physical Examination HEENT: Positive: PERRL Neck: Positive: neck supple Cardiac: Positive: Reg Rate and Rhythm Lungs: Positive: Normal Exam Neuro: Positive: Grossly Intact Abdomen: Positive: Soft Skin: Positive: Clear Extremities: Present: +1 Edema
[2016-09-25] MEDS: PEPCID PO SCH (10:45)
[2016-09-25] MEDS: APRESOLINE PO SCH ×3 (10:45→21:44)
[2016-09-25] MEDS: LOPRESSOR PO SCH ×2 (10:45→21:45)
--- NOTE | 2016-09-25 11:25 | Progress Note ---
Subjective Date of service: 09/25/16 Principal diagnosis: CHF Interval history: seen and examined at bedside; 24hour events reviewed; nursing and respiratory care staff consulted; no adverse overnight events reported to me; Objective Vital Signs - 12hr 09/25/16 09/25/16 09/25/16 00:29 06:19 09:37 Temperature 98.7 F 98.6 F 98.7 F Pulse Rate Pulse Rate [ 91 H Left] Pulse Rate [ 78 92 H Right Radial] Respiratory 20 22 18 Rate Blood Pressure Blood Pressure 129/73 156/90 143/87 [Right Radial Artery] O2 Sat by Pulse 100 99 98 Oximetry 09/25/16 10:45 Temperature Pulse Rate 91 H Pulse Rate [ Left] Pulse Rate [ Right Radial] Respiratory Rate Blood Pressure 143/87 Blood Pressure [Right Radial Artery] O2 Sat by Pulse Oximetry CBC and BMP: 09/21/16 21:46 09/22/16 16:54 Abnormal lab findings: Abnormal Labs 09/22/16 09/22/16 09/23/16 16:54 22:17 07:36 Carbon Dioxide 21 L BUN 39 H Glucose 72 L POC Glucose 60 L 61 L Hemoglobin A1c Calcium 8.2 L 09/23/16 09/23/16 09/23/16 13:16 15:54 21:33 Carbon Dioxide BUN Glucose POC Glucose 154 H 221 H 244 H Hemoglobin A1c Calcium 09/24/16 09/24/16 09/24/16 07:54 16:18 21:19 Carbon Dioxide BUN Glucose POC Glucose 187 H 63 L 168 H Hemoglobin A1c Calcium 09/25/16 09/25/16 07:31 07:34 Carbon Dioxide BUN Glucose POC Glucose 159 H Hemoglobin A1c 7.1 H Calcium
--- NOTE | 2016-09-25 16:50 | Progress Note ---
Assessment and Plan Assessment and plan: Acute on chronic systolic CHF. EF 45-50% on Echo done on 08/17/16. Continue Lasix 40 mg iv bid, Lopressor. Less shortness of breath. Cardiology following. Repeat CXR again shows pulmonary edema. Diabetes mellitus type 2. Fingerstick glucose qachs Hypertension. Continue Lopressor bid DVT prophylaxis with Heparin subcut. Full code status. History Interval history: Less shortness of breath, no chest pain, no fever Hospitalist Physical - Physical exam Narrative exam: Gen: Not in acute distress HEENT: Normocephalic, atraumatic Neck:supple, no lymphadenopathy Lungs: Bilateral crackles, no wheezes Heart:S1 and S2 reg, no murmurs, rubs or gallop Abd: soft, NT, non-distended, normal BS Ext: bilateral lower ext edema, no clubbing or cyanosis Neuro:Awake,alert,oriented x 3, no focal neuro signs - Constitutional Vitals: Temp Pulse Resp BP Pulse Ox 97.8 F 72 16 135/75 100 09/25/16 15:21 09/25/16 15:21 09/25/16 15:21 09/25/16 15:24 09/25/16 15:21 General appearance: Present: no acute distress Results - Labs CBC & Chem 7: 09/21/16 21:46 09/22/16 16:54 Labs: Laboratory Last Values WBC 5.0 K/mm3 (4.5-11.0) 09/21/16 21:46 RBC 3.05 M/mm3 (3.65-5.03) L 09/21/16 21:46 Hgb 9.0 gm/dl (11.8-15.2) L 09/21/16 21:46 Hct 27.2 % (35.5-45.6) L 09/21/16 21:46 MCV 89 fl (84-94) 09/21/16 21:46 MCH 30 pg (28-32) 09/21/16 21:46 MCHC 33 % (32-34) 09/21/16 21:46 RDW 17.3 % (13.2-15.2) H 09/21/16 21:46 Plt Count 217 K/mm3 (140-440) 09/21/16 21:46 Lymph % (Auto) 23.9 % (13.4-35.0) 09/21/16 21:46 [place] % (Auto) 7.7 % (0.0-7.3) H 09/21/16 21:46 Eos % (Auto) 3.3 % (0.0-4.3) 09/21/16 21:46 Baso % (Auto) 0.8 % (0.0-1.8) 09/21/16 21:46 Lymph # 1.2 K/mm3 (1.2-5.4) 09/21/16 21:46 [place] # 0.4 K/mm3 (0.0-0.8) 09/21/16 21:46 Eos # 0.2 K/mm3 (0.0-0.4) 09/21/16 21:46 Baso # 0.0 K/mm3 (0.0-0.1) 09/21/16 21:46 Seg Neutrophils % 64.3 % (40.0-70.0) 09/21/16 21:46 Seg Neutrophils # 3.2 K/mm3 (1.8-7.7) 09/21/16 21:46 Sodium 141 mmol/L (137-145) 09/22/16 16:54 Potassium 4.7 mmol/L (3.6-5.0) 09/22/16 16:54 Chloride 105.5 mmol/L (98-107) 09/22/16 16:54 Carbon Dioxide 21 mmol/L (22-30) L 09/22/16 16:54 Anion Gap 19 mmol/L 09/22/16 16:54 BUN 39 mg/dL (9-20) H 09/22/16 16:54 Creatinine 1.4 mg/dL (0.8-1.5) 09/22/16 16:54 Estimated GFR 51 ml/min 09/22/16 16:54 BUN/Creatinine Ratio 27.85 % 09/22/16 16:54 Glucose 72 mg/dL (75-100) L 09/22/16 16:54 POC Glucose 159 (70-105) H 09/25/16 07:31 Hemoglobin A1c 7.1 % (4-6) H 09/25/16 07:34 Calcium 8.2 mg/dL (8.4-10.2) L 09/22/16 16:54 Total Creatine Kinase 101 units/L (55-170) 09/21/16 21:46 CK-MB (CK-2) 4.6 ng/mL (0.0-4.0) H 09/21/16 21:46 CK-MB (CK-2) Rel Index 4.5 (0-4) H 09/21/16 21:46 Troponin T 0.029 ng/mL (0.00-0.029) 09/22/16 16:54 NT-Pro-B Natriuret Pep 9804 pg/mL (0-900) H 09/21/16 21:46
[2016-09-26] MEDS: LASIX IV SCH (05:29)
[2016-09-26] MEDS: APRESOLINE PO SCH ×2 (05:29→14:47)
[2016-09-26] MEDS: HEPARIN SUB-Q SCH ×2 (05:30→14:48)
[2016-09-26] MEDS: LOPRESSOR PO SCH (09:20)
[2016-09-26] MEDS: PEPCID PO SCH (09:20)
--- NOTE | 2016-09-26 12:37 | Progress Note ---
Subjective Date of service: 09/26/16 Principal diagnosis: Acute CHF exacerbation Interval history: seen and examined at bedside; 24hour events reviewed; nursing and respiratory care staff consulted; no adverse overnight events reported to me; Objective Vital Signs - 12hr 09/26/16 09/26/16 09/26/16 02:00 05:22 05:29 Temperature 98.8 F Pulse Rate 90 88 Pulse Rate [ Left] Pulse Rate [ 88 Right Radial] Respiratory 21 Rate Blood Pressure 145/87 Blood Pressure [Left Arm] Blood Pressure 145/87 [Right Radial Artery] O2 Sat by Pulse 99 Oximetry 09/26/16 09/26/16 09/26/16 08:20 09:20 10:00 Temperature 98.6 F Pulse Rate 98 H 94 H Pulse Rate [ 98 H Left] Pulse Rate [ Right Radial] Respiratory 20 Rate Blood Pressure 158/81 Blood Pressure 158/81 [Left Arm] Blood Pressure [Right Radial Artery] O2 Sat by Pulse 95 97 Oximetry 09/26/16 12:32 Temperature Pulse Rate Pulse Rate [ Left] Pulse Rate [ Right Radial] Respiratory Rate Blood Pressure Blood Pressure [Left Arm] Blood Pressure [Right Radial Artery] O2 Sat by Pulse 95 Oximetry CBC and BMP: 09/21/16 21:46 09/22/16 16:54 Abnormal lab findings: Abnormal Labs 09/22/16 09/22/16 09/23/16 16:54 22:17 07:36 Carbon Dioxide 21 L BUN 39 H Glucose 72 L POC Glucose 60 L 61 L Hemoglobin A1c Calcium 8.2 L 09/23/16 09/23/16 09/23/16 13:16 15:54 21:33 Carbon Dioxide BUN Glucose POC Glucose 154 H 221 H 244 H Hemoglobin A1c Calcium 09/24/16 09/24/16 09/24/16 07:54 16:18 21:19 Carbon Dioxide BUN Glucose POC Glucose 187 H 63 L 168 H Hemoglobin A1c Calcium 09/25/16 09/25/16 09/25/16 07:31 07:34 12:42 Carbon Dioxide BUN Glucose POC Glucose 159 H 201 H Hemoglobin A1c 7.1 H Calcium 09/25/16 09/25/16 09/26/16 17:23 21:26 08:20 Carbon Dioxide BUN Glucose POC Glucose 232 H 257 H 190 H Hemoglobin A1c Calcium
--- NOTE | 2016-09-26 12:53 | Discharge Summary ---
Providers - Providers Date of Admission: 09/21/16 23:27 Date of discharge: 09/26/16 Attending physician: MANUEL ESQUEDA 09/24/16 07:57 Consult to Physician [CONS] Routine Consulting Provider: PIERRE HE Reason For Exam: SOB, infiltres,pleural effuision Place consult to:: Dr. He Notified:: Dr. 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 Hospitalization Condition: Fair Disposition: DISCHARGED TO HOME OR SELFCARE - Discharge Diagnoses (1) Acute on chronic systolic HF (heart failure) Status: Acute (2) Diabetes mellitus type 2 in nonobese Status: Chronic (3) HTN (hypertension), benign Status: Chronic (4) History of left below knee amputation Status: Acute Core Measure Documentation - Palliative Care Palliative Care/ Comfort Measures: Not Applicable - Core Measures Any of the following diagnoses?: heart failure - Heart Failure Discharge Requirements SHIMON/ARB for LVSD if EF <40%: No Reason for no SHIMON/ARB: Renal impairment Beta jasmin at discharge: Yes Exam - Constitutional Vitals: Temp Pulse Resp BP Pulse Ox 98.6 F 94 H 16 158/81 95 09/26/16 08:20 09/26/16 10:00 09/26/16 10:00 09/26/16 09:20 09/26/16 12:32 Plan Activity: advance as tolerated Diet: low fat, low cholesterol, low salt, diabetic, renal Additional Instructions: 1.Follow up with PCP in 1 week. 2.Follow up with Dr. Jordan in 1 week Follow up with: PRIMARY CARE, [Primary Care Provider] - 3-5 Days Prescriptions: Famotidine [Pepcid] 20 mg PO QDAY #60 tablet Furosemide [Lasix TAB] 40 mg PO BID #60 tablet Insulin NPH/Regular [Novolin 70/30] 10 unit SQ BIDDIAB #1 vial Metoprolol [Lopressor TAB] 12.5 mg PO BID #60 tablet hydrALAZINE [Apresoline TAB] 25 mg PO Q8HR #90 tablet
[2016-09-26 15:40] VITALS: BP 152/87
== END 2016-09-26 17:48 | disposition home or self-care (01) | DRG 291 ==
LOC: ED 20:06 → 4A 23:27
PROVIDERS: ADMIT Internal Medicine; ATTEND Internal Medicine
DX: I13.0 Hypertensive heart and chronic kidney disease with heart failure and stage 1 through stage 4 chronic kidney disease, or unspecified chronic kidney disease (principal); I50.23 Acute on chronic systolic (congestive) heart failure; J96.01 Acute respiratory failure with hypoxia; J90 Pleural effusion, not elsewhere classified; E11.22 Type 2 diabetes mellitus with diabetic chronic kidney disease; N18.9 Chronic kidney disease, unspecified; D63.1 Anemia in chronic kidney disease; Z91.14 Patient's other noncompliance with medication regimen; Z89.512 Acquired absence of left leg below knee; Z83.3 Family history of diabetes mellitus; Z82.49 Family history of ischemic heart disease and other diseases of the circulatory system
CPT/HCPCS: 36415; 71010; 71020; 80048; 82550; 82553; 82962; 83036; 83880; 84484; 85025; 90686; 90732; 93005; 93010; 94760; 96374; J1644; J1815; J1940